=== PATIENT | male | born 1985 | race Caucasian/White ===

== ENCOUNTER → 2017-09-19 17:18 | Outpatient (CLI) | payer OTHER, SELFPAY ==
[2017-09-19 17:57] LABS: Hematocrit 42.5 % (41-53); Hemoglobin 14.8 g/dL (13.5-17.5); Mean Corpuscular HGB Conc 34.8 % (30-36); Mean Corpuscular Hemoglobin 33.1 PG (26-34); Mean Corpuscular Volume 94.9 fL (80-100); Platelet Count 229 X10^3/uL (150-400); Red Blood Cell Count 4.48 X10^6/uL (4.5-5.9); Red Cell Distribution Width 12.5 % (11.6-14.8); White Blood Cell Count 6.1 X10^3/uL (4.5-11.0)
[2017-09-19 19:25] LABS: Neutrophils Absolute Manual 4209 /uL (3000-5900); Total Cells Counted 100
[2017-09-19 19:26] LABS: RBC Morphology Normal Morphology
== END ==
PROVIDERS: PCP Family Medicine; Visit Provider Orthopaedic Surgery
DX: Z01.818 Encounter for other preprocedural examination (principal)
CPT/HCPCS: 36415; 85025

== ENCOUNTER 2017-09-26 15:18 | Day surgery (SDC) | payer OTHER, SELFPAY ==
[2017-09-18 14:45] VITALS: BMI 24.1
--- NOTE | 2017-09-26 | DI.RAD.S_ITS ---
PROCEDURE: XR LUMBAR SPINE 2-3V INDICATIONS: RIGHT L4-5 DISCECTOMY TECHNIQUE: 2 views of the lumbar spine were acquired. COMPARISON: [facility], [place], XR LUMBAR SPINE WITH OLBIQUES PLUS FLEXION EXTENSION, 07/31/2017, 8:37. [facility], RF, LUMBAR TRANSFORAMINAL JOHN, 08/10/2017, 9:33. FINDINGS: 2 intraoperative fluoroscopic views of the lower lumbar spine demonstrate localization of the L4-5 level. IMPRESSION: 1. Intraoperative localization of the L4-5 level. Dictated by: Ross Carrera M.D. on 09/26/2017 at 20:36 Approved by: Ross Carrera M.D. on 09/26/2017 at 20:37
[2017-09-26] MEDS: LACTATED RINGERS 1,000 ML 42 ML IV ×2 (15:20→20:16)
[2017-09-26 15:27] VITALS: BP 158/88; PULSE 58; RESP 16; TEMP 36.3; O2SAT 100; BMI 24.1
--- NOTE | 2017-09-26 17:52 | PM.PREOP ---
Pre-operative Note Interval Note Pre-op Check: History & Physical Reviewed by Physician and Exam Performed
--- NOTE | 2017-09-26 18:11 | PM.OP.1 ---
Operative Date/Time/Diagnoses Date of procedure: 09/26/17 Time of procedure: 20:19 Pre-op diagnosis: L4-5 disc herniation with radiculopathy Post-op diagnosis: same Procedure & Clinicians Procedure: Right L4-5 diskectomy Use of microscope Placement of epidural catheter Same procedure as scheduled: Yes Indications: [age] year old male with intractable pain from a lumbar disc herniation. They had failed conservative management and requested operative intervention. Risks and benefits of surgery were discussed and appropriate consents were obtained. Surgeon: Gilles Arias Air Conditioning Coil Assembler: Caroline He Anesthesia Type: General Operative Notes Findings: none Closure Type: primary Specimen(s): none sent Procedure in detail: Patient was brought to the operating room and intubated on the table. A time-out was performed. There were rolled over the well-padded prone position on the Luis A table. The back was prepped and draped in standard sterile fashion. Preoperative antibiotics were given. Attention was turned to the well-marked right side. Using fluoroscopy, a 3 cm incision was made to the right of the midline at the L4-5 level. We used Bovie to come down to and split the fascia. We then used the [employer] Ma[employer] dilators with fluoroscopy and then opened our retractors. The soft tissue was cleared off with Bovie, a marker was placed, an x-ray was taken to confirm positioning. We then brought in the microscope. A combination of high-speed bur and Kerrison were used to perform a right-sided hemilaminotomy and hemifacetectomy. We carefully retracted the dura and expose the disc. This was cleared with bipolar. A scalpel used to perform an annulotomy and a pituitary was used to perform the diskectomy. The ball probe was swept underneath the dura along the disc to make sure there were no further loose fragments. This was also placed into the disc and moved around to make sure there were no further loose fragments. Once everything was adequately decompressed, the wound was copiously irrigated. An epidural catheter was filled with 100 mcg of fentanyl and 8 mL of 0.25% Marcaine. The dura was carefully depressed under the laminotomy site and the catheter was advanced 6 cm cephalad. The retractor was removed and the fascia was closed. The epidural catheter was then injected without resistance and removed. Vancomycin powder was placed in the wound. Superficial and skin were closed. Sterile dressing was placed. The patient was then rolled over, transferred to the stretcher, and brought to recovery room without complications. Complications: none Condition: stable Disposition: PACU Plan for aftercare: Outpatient. Limited mobility for 2 weeks and then begin physical therapy.
--- NOTE | 2017-09-26 18:46 | SUR.OPER ---
Prone on spine table, head in foam head support, padded chest and pelvic supports, gel pad at knees, lower legs supported by pillows; nipples, genitalia and toes free of pressure, arms secured on foam padded arm boards at <90 degrees abduction. Tape over blanket at thigh secured to table.
[2017-09-26] MEDS: CEFAZOLIN 2 GM/100 ML FROZ.PIGGY IV (18:58)
[2017-09-26] MEDS: VANCOMYCIN 1,000 MG VIAL 1000 MG TOP (19:58)
[2017-09-26] MEDS: THROMBIN (BOVINE) 5,000 UNIT VIAL 5000 UNIT TOP (19:58)
[2017-09-26] MEDS: BUPIVACAINE 0.25% (PF) 8 ML, fentaNYL 100 MCG INJ (19:59)
[2017-09-26] MEDS: SODIUM CHLORIDE 0.9% 1,000 ML, GENTAMICIN 80 MG IRR (19:59)
[2017-09-26 20:42] VITALS: BP 114/57; PULSE 61; RESP 15; TEMP 36.5; O2SAT 96
[2017-09-26 20:47] VITALS: BP 109/57; PULSE 63; RESP 16; O2SAT 95
[2017-09-26 20:52] VITALS: BP 141/51; PULSE 75; RESP 17; O2SAT 97
[2017-09-26 21:00] VITALS: BP 143/50; PULSE 76; RESP 17; O2SAT 97
[2017-09-26 21:09] VITALS: BP 153/76; PULSE 66; RESP 17; TEMP 36.7; O2SAT 98
== END 2017-09-26 21:25 | disposition home or self-care (01) ==
PROVIDERS: Family Provider Family Medicine; PCP Family Medicine; Visit Provider Orthopaedic Surgery
PROC: (CPT 63030; principal; 2017-09-26 15:15)
DX: M51.16 Intervertebral disc disorders with radiculopathy, lumbar region (principal)
CPT/HCPCS: 63030; 72100; 76000; J0690; J1100; J2250; J2405; J2704; J3010

== ENCOUNTER 2021-01-02 14:56 | Emergency (ER) | payer OTHER, SELFPAY ==
[2021-01-02 15:12] VITALS: BP 152/83; PULSE 69; RESP 18; TEMP 36.6; O2SAT 99; BMI 24.4
[2021-01-02 15:25] LABS: COVID19 -Nasal RAPID Negative (Negative)
--- NOTE | 2021-01-02 15:44 | ED.URI ---
HPI - URI/Sore Throat General Chief Complaint: Upper Respiratory Symptoms Stated Complaint: Sore throat-12 hrs Time Seen by Provider: 01/02/21 15:39 Mode of arrival: Ambulatory History of Present Illness HPI Narrative: Patient complains onset 12 hours ago with sore throat. No cough cold congestion. No fever chills. No nausea vomiting diarrhea. No loss of taste or smell. Patient is COVID vaccinated. Related Data Home Medications Medication Instructions Recorded Confirmed ibuprofen 200 mg tablet 600 mg PO PRN #0 06/18/17 Previous Rx's Medication Instructions Recorded hydrocodone 5 mg-acetaminophen 325 See Rx Instructions .ROUTE 09/26/17 mg tablet ([place]) .COMPLEX PRN #20 tab hydroxyzine pamoate 25 mg capsule 25 mg PO QID PRN #14 cap 09/26/17 (Vistaril) amoxicillin 500 mg capsule 500 mg PO BID #20 cap 01/02/21 Allergies Allergy/AdvReac Type Severity Reaction Status Date / Time No Known Drug Allergies Allergy Verified 09/26/17 17:01 Review of Systems Review of Systems Narrative: GENERAL: Denies chills, fatigue, malaise, fever, sweats. HEENT: Denies sinus pain, ear pain, positive sore throat RESPIRATORY: Denies dyspnea, cough CARDIOVASCULAR: Denies chest pain, palpitations GASTROINTESTINAL: Denies nausea, vomiting, abdominal pain : Denies dysuria, frequency, hematuria MUSCULOSKELETAL: denies muscle or bony pain SKIN: Denies rash, skin lesions NEUROLOGIC: Denies weakness, numbness ROS Unobtainable: All systems reviewed & are unremarkable except as noted in HPI and below Patient History Medical History Lumbar disc herniation with radiculopathy Surgical History S/P epidural steroid injection (~08/10/17) Social History household members: spouse Smoking Status: Never smoker alcohol intake: current Smoking Status: Never smoker alcohol intake frequency: holidays/special occasions only Substance Use Type: does not use Exam Narrative Exam Narrative: GENERAL: in no distress, not toxic not dyspneic HEAD: Normocephalic. EYES: Pupils equal round No scleral icterus. ENT: Mucous membranes moist. No pharyngeal erythema or edema or exudates. No tongue elevation. No drooling. No malocclusion or trismus. NECK: Trachea midline. CARDIOVASCULAR: Regular rate and rhythm without murmurs RESPIRATORY: Clear to auscultation. Breath sounds equal bilaterally. No wheezes, rales, or rhonchi. Speaking full sentences NEURO: AOx4. SKIN: Warm and dry PSYCH: Not anxious, is cooperative Initial Vital Signs Initial Vital Signs: Vital Signs Temperature 97.8 F 01/02/21 15:12 Pulse Rate 69 01/02/21 15:12 Respiratory Rate 18 01/02/21 15:12 Blood Pressure 152/83 H 01/02/21 15:12 Pulse Oximetry 99 01/02/21 15:12 Course Course Course Narrative: No new issues during course of stay Orders Ordered: ED Orders 01/02/21 15:04 COVID19 -Nasal swab/Pre-Proc Stat 01/02/21 15:06 Throat Culture Stat Reevaluation(s) Reevaluation #1: Patient understands to hold onto antibiotic prescription and to use only if receives call for positive strep culture Vital Signs Vital signs: Vital Signs - 8 hr 01/02/21 15:12 Temperature 97.8 F Pulse Rate 69 Respiratory Rate 18 Blood Pressure 152/83 H Pulse Oximetry 99 MDM - URI/Sore Throat Differential Diagnosis Differential diagnosis: Likely upper respiratory infection, viral infection, pharyngitis and other (Strep throat/COVID) Lab Data Labs: Lab Results 01/02/21 Range/Units 15:04 SARS-CoV-2 (PCR) Negative (Negative) Point of Care Testing Rapid Strep A Negative MDM Narrative Medical decision making narrative: No imaging indicated. Appropriate for discharge home. No hypoxia no tachypnea. Exam and labs are reassuring. Return precautions reviewed with patient. Discharge Plan Departure Patient Disposition: Home Clinical Impression: Pharyngitis Qualifiers: Pharyngitis/tonsillitis etiology: unspecified etiology Qualified Code(s): J02.9 - Acute pharyngitis, unspecified Instructions: DI for Pharyngitis/Tonsillopharyngitis -- Adult Activity Restrictions/Additional Instructions: See family doctor in a week for recheck. Keep well hydrated. If he received a phone call that your throat culture is positive, then start the prescription antibiotic that has been provided for you. You have tested negative again negative for COVID. Return if worse if any questions or concerns Prescriptions: New amoxicillin 500 mg capsule 500 mg PO BID Qty: 20 RF: 0 No Action ibuprofen 200 MG tablet 600 mg PO PRN (Reason: Pain (Scale Score 1-3)) Qty: 0 RF: 0 hydrocodone-acetaminophen [[place]] 5-325 mg tablet See Rx Instructions .ROUTE .COMPLEX PRN (Reason: pain) Qty: 20 RF: 0 hydroxyzine pamoate [Vistaril] 25 mg capsule 25 mg PO QID PRN (Reason: spasm) Qty: 14 RF: 0 Referrals: Jack German MD [Primary Care Provider] -
[2021-01-02 15:50] VITALS: BP 132/63; PULSE 67; RESP 16; O2SAT 99
== END 2021-01-02 15:50 | disposition home or self-care (01) ==
PROVIDERS: Emergency Provider Emergency Medicine; Family Provider Family Medicine; PCP Family Medicine
DX: J02.9 Acute pharyngitis, unspecified (principal); Z20.822 Contact with and (suspected) exposure to COVID-19
CPT/HCPCS: 87070; 87635; 87880; 99281; 99282; C9803

== ENCOUNTER 2021-03-04 16:07 | Emergency (ER) | payer OTHER, SELFPAY ==
[2021-03-04 16:49] VITALS: BP 155/80; PULSE 50; RESP 17; TEMP 36.6; O2SAT 99; BMI 25.7
--- NOTE | 2021-03-04 16:54 | DI.RAD.S_ITS ---
PROCEDURE: XR KNEE LT 3V INDICATIONS: knee pain TECHNIQUE: 3 views of the knee were acquired. COMPARISON: None. FINDINGS: Bones: No fractures or dislocations. No suspicious bony lesions. Soft tissues: Trace joint effusion. No suspicious soft tissue calcifications. IMPRESSION: No acute osseous abnormality. Dictated by: Obed Rinaldi M.D. on 03/04/2021 at 17:19 Approved by: Obed Rinaldi M.D. on 03/04/2021 at 17:19
--- NOTE | 2021-03-04 19:04 | ED.LOWEXIN ---
HPI - Extremity Injury (Lower) <Trace Sheth PA-C - Last Filed: 03/04/21 19:39> General Chief Complaint: Extremity Injury, Lower Stated Complaint: lt knee went out on him, pain Time Seen by Provider: 03/04/21 18:43 Source: patient Mode of arrival: Ambulatory History of Present Illness HPI Narrative: Patient is a 35-year-old male presenting to the emergency department today for evaluation of left knee pain. Patient states he has had left knee pain intermittently for quite some time, however he notes that over the last 3 weeks he has noted is is significantly worsened. He states today he experience an episode of his knee ?giving out? on him as he was walking down the stairs. Patient states that he is active in exercises regularly and notes that squatting and lunging appears to exacerbate his pain. Patient denies injury, falls,or trauma to left knee. No fever, chills, chest pain, numbness or tingling in the bilateral lower extremities, cough, shortness of breath, abdominal pain, nausea, vomiting, diarrhea, dysuria, or hematuria reported Related Data Allergies Allergy/AdvReac Type Severity Reaction Status Date / Time No Known Drug Allergies Allergy Verified 03/04/21 16:51 Review of Systems <Trace Sheth PA-C - Last Filed: 03/04/21 19:39> Constitutional Constitutional: Denies chills, Denies fatigue, Denies fever(s), Denies frequent falls, Denies lethargy and Denies weakness Eyes Eyes: Denies loss of vision ENT Ears, Nose, Mouth, and Throat: Denies dizziness and Denies neck pain Cardiovascular Cardiovascular: Denies chest pain, Denies irregular heart rhythm, Denies lightheadedness, Denies palpitations, Denies dyspnea, Denies dyspnea on exertion and Denies orthopnea Respiratory Respiratory: Denies cough, Denies dyspnea, Denies dyspnea on exertion and Denies wheezing Gastrointestinal Gastrointestinal: Denies abdominal pain, Denies change in bowel habits, Denies diarrhea, Denies nausea and Denies vomiting Genitourinary Genitourinary: Denies hematuria, Denies flank pain, Denies urinary incontinence and Denies urinary urgency Musculoskeletal Musculoskeletal: Denies back pain, Reports arthralgias (Left knee), Denies joint swelling, Denies muscle weakness, Denies neck pain, Denies numbness and Denies tingling Integumentary/Breasts Skin/Breast: Denies pruritus, Denies erythema, Denies rash and Denies wounds Neurologic Neurologic: Denies behavioral changes, Denies confusion, Denies dizziness, Denies frequent falls, Denies loss of vision, Denies numbness, Denies tingling and Denies weakness Psychiatric Psychiatric: Denies behavioral changes and Denies confusion Endocrine Endocrine: Denies fatigue and Denies palpitations Allergic/Immunologic Allergic/Immunologic: Denies wheezing Patient History <Trace Sheth PA-C - Last Filed: 03/04/21 19:39> Medical History Lumbar disc herniation with radiculopathy Surgical History S/P epidural steroid injection (~08/10/17) Social History household members: spouse Smoking Status: Never smoker alcohol intake: current Smoking Status: Never smoker alcohol intake frequency: holidays/special occasions only Substance Use Type: does not use Exam <Trace Sheth PA-C - Last Filed: 03/04/21 19:39> Narrative Exam Narrative: GENERAL: 35 year old patient appears stated age. Well-developed patient, in no acute distress. HEAD: Atraumatic. Normocephalic. EYES: Pupils equal round and reactive. Extraocular motions intact. No scleral icterus. No injection or drainage. ENT: Nose without bleeding, purulent drainage. Throat without erythema, tonsillar hypertrophy or exudate. Airway patent. NECK: Trachea midline. Non tender CARDIOVASCULAR: Regular rate and rhythm without murmurs, gallops, or rubs. RESPIRATORY: Clear to auscultation. Breath sounds equal bilaterally. No wheezes, rales, or rhonchi. GASTROINTESTINAL: Abdomen soft, non-tender, nondistended. EXTREMITIES: No edema or joint tenderness. Tenderness with resisted flexion of the left knee. No midline joint tenderness of the left knee. No significant erythema, swelling, or warmth noted from the joint. Good sensation appreciated throughout bilateral lower extremities to light touch. Gross motor function intact of the bilateral lower extremities. BACK: Nontender without deformity or crepitance. No flank tenderness. NEURO: AOx3. SKIN: No rash or erythema of visible areas Initial Vital Signs Initial Vital Signs: Vital Signs Temperature 98 F 03/04/21 16:49 Pulse Rate 50 L 03/04/21 16:49 Respiratory Rate 17 03/04/21 16:49 Blood Pressure 155/80 H 03/04/21 16:49 Pulse Oximetry 99 03/04/21 16:49 <Saloni Smith DO - Last Filed: 03/04/21 23:44> Initial Vital Signs Initial Vital Signs: Vital Signs Temperature 98 F 03/04/21 16:49 Pulse Rate 50 L 03/04/21 16:49 Respiratory Rate 17 03/04/21 16:49 Blood Pressure 155/80 H 03/04/21 16:49 Pulse Oximetry 99 03/04/21 16:49 Course <Trace Sheth PA-C - Last Filed: 03/04/21 19:39> Course Course Narrative: X-ray of left knee obtained. Orders Ordered: ED Orders 03/04/21 16:54 XR knee LT 3V Stat Vital Signs Vital signs: Vital Signs - 8 hr 03/04/21 16:49 Temperature 98 F Pulse Rate 50 L Respiratory Rate 17 Blood Pressure 155/80 H Pulse Oximetry 99 <Saloni Smith DO - Last Filed: 03/04/21 23:44> Orders Ordered: ED Orders 03/04/21 16:54 XR knee LT 3V Stat Vital Signs Vital signs: Vital Signs - 8 hr 03/04/21 16:49 Temperature 98 F Pulse Rate 50 L Respiratory Rate 17 Blood Pressure 155/80 H Pulse Oximetry 99 MDM - Extremity Injury (Lower) <Trace Sheth PA-C - Last Filed: 03/04/21 19:39> Imaging Data Extremity x-ray #1: Radiologist's Impression: PROCEDURE:? XR KNEE LT 3V ? INDICATIONS:? knee pain ? TECHNIQUE:? 3 views of the knee were acquired.? ? COMPARISON:? None. ? FINDINGS:? ? Bones:? No fractures or dislocations.? No suspicious bony lesions.? ? Soft tissues:? Trace joint effusion.? No suspicious soft tissue calcifications.? ? ? IMPRESSION:? No acute osseous abnormality. ? ? Dictated by: Obed Rinaldi M.D. on 03/04/2021 at 17:19 ? ? Approved by: Obed Rinaldi M.D. on 03/04/2021 at 17:19 ? MDM Narrative Medical decision making narrative: To consider fracture versus dislocation versus sprain versus strain. Overall physical examination, history, imaging are reassuring. Discussed with the patient results of his x-ray in the emergency department today. At this time patient feels comfortable being discharged home with follow-up with scheduled with [facility]. Discussed strict return precautions with patient prior to discharge. Discharge Plan Departure Patient Disposition: Home Clinical Impression: Acute pain of left knee Instructions: DI for Patellofemoral Pain Syndrome-Adult Activity Restrictions/Additional Instructions: *You have been diagnosed with acute left knee pain *What to do: *Please continue to take your regular medications as directed. [ ] New medication prescriptions sent to your pharmacy: [ ] [ ] New medication written as a paper prescription [X] No new medications given *Please follow up with your primary care provider in 2-3 days, call for an appointment. Let them know you were seen in the Emergency Department and that we ask that you be seen in follow up. We will electronically transmit a record of today's note if your PCP is in our system. *Please follow-up with [facility] for the earliest available appointment. Office can be reached at . *If you do not have a primary care provider please contact the [facility] Resource line at [phone]. They will ask some questions about your medical history and help get you set up with a doctor in the community. *Return to Emergency Department if you should have any new, worsening or concerning symptoms, such as fever greater than 101 F, shaking chills, worsening pain, persistent vomiting or other bothersome symptoms. Referrals: Msity Jordan MD [Physician] - As soon as possible Jack German MD [Primary Care Provider] - <Saloni Smith DO - Last Filed: 03/04/21 23:44> Cosign ED Attending Agature Attestation: I was immediately available in the department for consultation. Documentation has been reviewed. I agree with assessment and plan.
== END 2021-03-04 19:16 | disposition home or self-care (01) ==
PROVIDERS: Emergency Provider Physician Assistant; Family Provider Family Medicine; PCP Family Medicine
DX: M25.562 Pain in left knee (principal)
CPT/HCPCS: 73562; 99283

== ENCOUNTER → 2021-03-30 17:31 | Outpatient (CLI) | payer OTHER, SELFPAY ==
--- NOTE | 2021-03-30 | DI.MRI.S_ITS ---
PROCEDURE: MR KNEE LT WO CON INDICATIONS: left knee pain w/bucking, hx of patella subluxation TECHNIQUE: Noncontrast sagittal PD fast spin echo and T2 fast spin echo with fat saturation, sagittal 3-D FLASH with fat saturation; coronal T1 spin echo and PD fast spin echo with fat saturation, and axial PD fast spin echo with fat saturation through the knee. COMPARISON: None. FINDINGS: Image quality: Excellent. Menisci: The medial and lateral menisci demonstrate normal morphology and internal signal. The meniscal root ligaments appear intact. Cruciate ligaments: The anterior and posterior cruciate ligaments appear intact. Medial structures: The medial collateral ligament appears intact. The visualized portions of the pes anserinus tendons appear normal. No abnormal bursal fluid. Lateral structures: The lateral collateral ligament complex appears intact. The popliteus tendon appears normal. The iliotibial band appears normal. Anterior structures: The quadriceps and patellar tendons appear intact. Patellar alignment is normal. No femoral trochlear dysplasia or ventral trochlear prominence. No edema in the infrapatellar fat pad. Bones and cartilage: Small focus of subchondral in the patella apex. Signal heterogeneity of the hyaline cartilage with overlying fissure is seen. The medial and lateral compartment hyaline cartilage is maintained. Joint space: Small knee joint fluid. Trace Thomas's cyst. IMPRESSION: 1. Osteochondral injury of the patellar apex as detailed above. 2. Small knee joint effusion. Dictated by: Robles Guaman M.D. on 03/31/2021 at 11:01 Approved by: Robles Guaman M.D. on 03/31/2021 at 11:06
== END ==
PROVIDERS: Family Provider Family Medicine; PCP Family Medicine; Referring Provider Student in an Organized Health Care Education/Training Program; Visit Provider Student in an Organized Health Care Education/Training Program
DX: M25.362 Other instability, left knee (principal); M23.8X2 Other internal derangements of left knee
CPT/HCPCS: 73721